=== PATIENT | male | born 1935 | race Caucasian/White ===

== ENCOUNTER 2017-01-10 13:55 | Emergency (ER) | payer MEDICARE ==
[2017-01-10] MEDS ORDERED: NS 0.9% 1000 ML* 1,000 ML IV ONE (14:50)
[2017-01-10 16:16] VITALS: BP 156/69
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
== END 2017-01-10 16:11 | disposition short-term general hospital (02) ==
LOC: ED 13:55
DX: I10 Essential (primary) hypertension (principal); R41.0 Disorientation, unspecified; Z87.891 Personal history of nicotine dependence
CPT/HCPCS: 96360; 99284

== ENCOUNTER 2019-10-21 19:03 | Observation (INO) ==
[2019-10-21] MEDS ORDERED: Dextrose 50% Syringe 50 ml 25 GM/50 ML SYRINGE IV PUSH ONE (19:45)
[2019-10-21] MEDS ORDERED: Dextrose 50% Syringe 50 ml 25 GM/50 ML SYRINGE ONE (19:46)
[2019-10-21 19:53] LABS: ABS Eosinophils 0.1 10^3/ul (0-0.6); ABS Lymphocytes 1.3 10^3/ul (1.0-4.8); ABS Monocytes 0.9 10^3/ul (0-0.8); Eosinophil % 1.2 %; Hematocrit 43 % (42-52); Hemoglobin 14.8 g/dL (14.0-18.0); Lymphocyte % 13.2 %; Mean Corpuscular HGB Conc 34 g/dL (31-36); Mean Corpuscular Hemoglobin 33 pg (27-31); Mean Corpuscular Volume 97 fL (80-94); Mean Platelet Volume 8.4 fL (7.4-10.4); Nucleated Red Blood Cells % 0.1; Platelet Count 239 10^3/uL (150-450); Red Blood Count 4.45 10^6 /uL (4.18-5.48); Red Cell Distribution Width 14 % (10-15); White Blood Count 10.2 10^3/uL (3.5-10.8)
[2019-10-21 20:12] LABS: ALT 18 U/L (7-52); AST 31 U/L (13-39); Albumin 3.9 g/dL (3.2-5.2); Albumin/Globulin Ratio 1.6 (1-3); Alkaline Phosphatase 70 U/L (34-104); Anion Gap 7 mmol/L (2-11); BUN/Creatinine Ratio 30.4 (8-20); Blood Urea Nitrogen 77 mg/dL (6-24); C Reactive Protein < 1.00 mg/L (<8.01); CO2 Carbon Dioxide 25 mmol/L (22-32); Calcium 9.2 mg/dL (8.6-10.3); Chloride 107 mmol/L (101-111); EGFR African American 29.4 (>60); EGFR Non-African American 24.3 (>60); Globulin 2.5 g/dL (2-4); Potassium 4.1 mmol/L (3.5-5.0); Sodium 139 mmol/L (135-145); Total Protein 6.4 g/dL (6.4-8.9)
[2019-10-21] MEDS ORDERED: NS 0.9% 1000 ml BAG 1,000 ML IV ONE (20:13)
[2019-10-21 20:18] LABS: Glucose 36 mg/dL (70-100); Troponin I 0.14 ng/mL (<0.03)
[2019-10-21] MEDS ORDERED: Dextrose 50% Syringe 50 ml 25 GM/50 ML SYRINGE IV PUSH PRN (20:58)
[2019-10-21] MEDS: Heparin 5000 UNITS/ML 1 mL VIAL SUBCUT SCH (22:22)
[2019-10-21 22:28] LABS: Urine Appearance Clear; Urine Bilirubin Negative (Negative); Urine Blood Negative (Negative); Urine Color Yellow; Urine Glucose Negative (Negative); Urine Ketones Negative (Negative); Urine Nitrite Negative (Negative); Urine Protein Negative (Negative); Urine Urobilinogen Negative (Negative)
[2019-10-21 22:33] LABS: Folate 17.72 ng/mL (>3.99)
[2019-10-21] MEDS ORDERED: D10W 1000 ml BAG 1,000 ML IV SCH (23:00)
[2019-10-22] MEDS: Heparin 5000 UNITS/ML 1 mL VIAL SUBCUT SCH ×3 (06:00→23:09)
[2019-10-22] MEDS ORDERED: Aspirin EC 81 mg TAB.EC (enteric coated) PO SCH (09:00)
[2019-10-22] MEDS: Aspirin EC 81 mg TAB.EC (enteric coated) PO SCH (09:00)
[2019-10-22] MEDS ORDERED: Insulin GLARGINE 100 un/ml 10 ml VIAL ONE (11:47)
[2019-10-22] MEDS ORDERED: Dextrose 50% Syringe 50 ml 25 GM/50 ML SYRINGE IV PUSH PRN (18:13)
[2019-10-22 22:27] LABS: Troponin I 1.12 ng/mL (<0.03)
[2019-10-22 23:43] LABS: Troponin I 0.97 ng/mL (<0.03)
[2019-10-22 23:46] LABS: Troponin I 0.53 ng/mL (<0.03)
[2019-10-23 02:10] LABS: Troponin I 1.26 ng/mL (<0.03)
[2019-10-23 02:11] LABS: Cholesterol 126 mg/dL; HDL Cholesterol 30.7 mg/dL; LDL Cholesterol 45 mg/dL; Triglycerides 250 mg/dL
[2019-10-23] MEDS: Heparin 5000 UNITS/ML 1 mL VIAL SUBCUT SCH ×3 (05:13→20:44)
[2019-10-23] MEDS: Aspirin EC 81 mg TAB.EC (enteric coated) PO SCH (08:22)
[2019-10-23] MEDS ORDERED: Insulin GLARGINE 100 un/ml 10 ml VIAL SUBCUT SCH (09:00)
[2019-10-23] MEDS ORDERED: Insulin GLARGINE 100 un/ml 10 ml VIAL SUBCUT ONE (10:52)
[2019-10-24 04:52] LABS: ABS Eosinophils 0.3 10^3/ul (0-0.6); ABS Lymphocytes 1.5 10^3/ul (1.0-4.8); ABS Monocytes 0.7 10^3/ul (0-0.8); Eosinophil % 5.7 %; Hematocrit 38 % (42-52); Hemoglobin 13.2 g/dL (14.0-18.0); Lymphocyte % 26.5 %; Mean Corpuscular HGB Conc 34 g/dL (31-36); Mean Corpuscular Hemoglobin 34 pg (27-31); Mean Corpuscular Volume 98 fL (80-94); Mean Platelet Volume 8.5 fL (7.4-10.4); Platelet Count 165 10^3/uL (150-450); Red Blood Count 3.92 10^6 /uL (4.18-5.48); Red Cell Distribution Width 14 % (10-15); White Blood Count 5.5 10^3/uL (3.5-10.8)
[2019-10-24 05:01] LABS: BUN/Creatinine Ratio 25.2 (8-20); Calcium 8.7 mg/dL (8.6-10.3); EGFR African American 37.2 (>60); EGFR Non-African American 30.8 (>60)
[2019-10-24] MEDS: Heparin 5000 UNITS/ML 1 mL VIAL SUBCUT SCH ×3 (05:09→20:42)
[2019-10-24] MEDS ORDERED: Insulin GLARGINE 100 un/ml 10 ml VIAL SUBCUT SCH (08:00)
[2019-10-24] MEDS: Aspirin EC 81 mg TAB.EC (enteric coated) PO SCH (08:46)
[2019-10-25] MEDS: Heparin 5000 UNITS/ML 1 mL VIAL SUBCUT SCH (05:42)
[2019-10-25] MEDS: Aspirin EC 81 mg TAB.EC (enteric coated) PO SCH (08:48)
[2019-10-25] MEDS ORDERED: Insulin GLARGINE 100 un/ml 10 ml VIAL SUBCUT SCH (09:00)
[2019-10-25 14:21] VITALS: BP 112/68
== END 2019-10-25 14:25 | disposition home health service (06) | DRG 639 ==
LOC: ED 19:03 → MEDTELE 20:38 → INTOOBSV 20:38 → OBSVTOIN 20:38 → MEDTELE 21:49
PROVIDERS: ADMIT Internal Medicine; ATTEND Internal Medicine